=== PATIENT | female | born 2000 | race Caucasian/White ===

== ENCOUNTER 2023-08-05 19:50 | Inpatient (IN) | payer BC ==
[2023-08-05] MEDS: ELECTROLYTE-148 SOLN 500 ML IV ONE (20:00)
[2023-08-05] MEDS ORDERED: ELECTROLYTE-148 SOLN 500 ML IV ONE (20:00)
[2023-08-05] MEDS: ELECTROLYTE-148 SOLN 1,000 ML IV SCH (20:00)
[2023-08-05] MEDS: CITRIC ACID/SODIUM CITRATE 30 ML UNIT-DOSE CUP PO ONE (20:30)
[2023-08-05 21:18] VITALS: BMI 29.0
[2023-08-05] MEDS ORDERED: morphine SULFATE/PF 1 MG/2 ML (2cc Syringe - QUVA) ONE (21:38)
[2023-08-05 22:47] LABS: CORD HCO3 28.7 mmHg (20-29); CORD PCO2 67.2 mmHg (30-78); CORD pH 7.248 (7.14-7.44)
[2023-08-05 22:50] LABS: CORD BASE EXCESS -2.4 mmol/L (0-2); CORD PCO2 46.9 mmHg (30-78); CORD pH 7.327 (7.14-7.44)
[2023-08-05] MEDS ORDERED: ACETAMINOPHEN 325 MG TABLET (FP) PO PRN ×2 (23:01→23:02)
[2023-08-05] MEDS ORDERED: BENZOCAINE 20% 57 GM BOTTLE TP PRN (23:02)
[2023-08-05] MEDS ORDERED: BENZOCAINE 28 GM HEMORRHOIDAL OINTMENT TP PRN (23:02)
[2023-08-05] MEDS ORDERED: WITCH HAZEL 50% (TUCKS) 40 PAD/JAR PAD TP PRN (23:02)
[2023-08-05] MEDS ORDERED: METHYLERGONOVINE MALEATE 0.2 MG/1 ML AMP IM PRN (23:02)
[2023-08-06] MEDS: OXYTOCIN 20 UNITS in 0.9% NS 20 UNIT/1,000 ML INFUS.BAG IV SCH
[2023-08-06] MEDS ORDERED: OXYTOCIN 20 UNITS in 0.9% NS 20 UNIT/1,000 ML INFUS.BAG IV ONE (00:16)
[2023-08-06] MEDS: IBUPROFEN 800 MG/8 ML IJ IVPB PRN (01:53)
[2023-08-06] MEDS: SIMETHICONE 80 MG TAB.CHEW (FP) PO PRN (04:30)
[2023-08-06 08:28] LABS: BASO % 0.3 % (0-2.0); EOS % 0.3 % (0-4.5); HEMATOCRIT 25.4 % (32.4-45.2); HEMOGLOBIN 8.3 GM/dL (10.7-15.3); LYMPH % 20.7 % (8-40); MCH 25.9 pg (25.7-33.7); MCHC 32.6 g/dl (32.0-36.0); MEAN CELL VOLUME 79.3 fl (80-96); MEAN PLT VOLUME 9.3 fl (7.5-11.1); NEUT % 71.7 % (42.8-82.8); PLATELET COUNT 174 10^3/uL (134-434); RDW 14.2 % (11.6-15.6); WHITE BLOOD COUNT 15.3 K/mm3 (4.0-10.0)
[2023-08-06] MEDS: ENOXAPARIN NA (PORCINE) 40 MG/0.4 ML DISP.SYRIN SQ SCH (10:18)
[2023-08-06] MEDS: PRENATAL VITAMINS W/ FOLIC ACID TABLET (FP) PO SCH (10:19)
[2023-08-06] MEDS: IBUPROFEN 600 MG TABLET (FP) PO PRN (14:45)
[2023-08-06] MEDS: SENNOSIDES/DOCUSATE COMBO (SENNA PLUS) TABLET (UD) PO PRN (22:32)
[2023-08-06] MEDS: oxyCODONE HCL 5 MG TABLET PO PRN (22:32)
[2023-08-06] MEDS ORDERED: BISACODYL 10 MG SUPP.RECT RC PRN (23:02)
[2023-08-07] MEDS: oxyCODONE HCL 5 MG TABLET PO PRN (06:38)
[2023-08-07 11:14] LABS: BASO % 0.2 % (0-2.0); EOS % 0.3 % (0-4.5); HEMATOCRIT 22.8 % (32.4-45.2); HEMOGLOBIN 7.6 GM/dL (10.7-15.3); LYMPH % 21.7 % (8-40); MCHC 33.2 g/dl (32.0-36.0); MEAN CELL VOLUME 78.4 fl (80-96); MEAN PLT VOLUME 8.4 fl (7.5-11.1); MONO % 6.4 % (3.8-10.2); NEUT % 71.4 % (42.8-82.8); PLATELET COUNT 181 10^3/uL (134-434); RBC 2.91 M/mm3 (3.60-5.2); RDW 14.2 % (11.6-15.6); WHITE BLOOD COUNT 15.1 K/mm3 (4.0-10.0)
[2023-08-07] MEDS: IBUPROFEN 600 MG TABLET (FP) PO SCH (12:58)
[2023-08-08 09:04] LABS: BASO % 0.2 % (0-2.0); EOS % 1.5 % (0-4.5); HEMATOCRIT 22.6 % (32.4-45.2); HEMOGLOBIN 7.6 GM/dL (10.7-15.3); LYMPH % 29.1 % (8-40); MCH 26.7 pg (25.7-33.7); MCHC 33.7 g/dl (32.0-36.0); MEAN CELL VOLUME 79.1 fl (80-96); MEAN PLT VOLUME 8.4 fl (7.5-11.1); MONO % 6.3 % (3.8-10.2); NEUT % 62.9 % (42.8-82.8); PLATELET COUNT 181 10^3/uL (134-434); RBC 2.85 M/mm3 (3.60-5.2); RDW 14.4 % (11.6-15.6); WHITE BLOOD COUNT 10.2 K/mm3 (4.0-10.0)
[2023-08-09 11:30] VITALS: BP 117/62; PULSE 96; RESP 16; TEMP 98.6
== END 2023-08-09 14:00 | disposition home or self-care (01) | DRG 788 ==
LOC: JERBED 19:50 → JLDR 20:28 → J3W 08-06 01:30
PROVIDERS: ADMIT Obstetrics & Gynecology; ATTEND Obstetrics & Gynecology
PROC: 10D00Z1 Extraction of Products of Conception, Low, Open Approach (ICD-10-PCS; principal; 2023-08-05)
DX: O32.1XX0 Maternal care for breech presentation, not applicable or unspecified (principal); O99.892 Other specified diseases and conditions complicating childbirth; O99.02 Anemia complicating childbirth; D64.9 Anemia, unspecified; R00.0 Tachycardia, unspecified; Z3A.37 37 weeks gestation of pregnancy; Z37.0 Single live birth
CPT/HCPCS: 36415; 36600; 82803; 85025; 85461; 88307-TC; 96372; J2790